=== PATIENT | female | born 1995 | race African-American/Black ===

== ENCOUNTER 2017-03-10 00:53 | Emergency (ER) | payer OTHER ==
--- NOTE | ~2017-03-10 | CT2 ---
[facility] Service of [facility] RADIOLOGY TEXT RESULTS PATIENT: DIXIE ABREU LOCATION: SED : 95 UNIT #: [id number] AGE: [address]: Berry Levin MD SEX: F ORDER DR: [id number] [address] [address] [id number] MR#: [id number] Acc #: [id number] NAME: DIXIE ABREU : 1995 SEX: F STUDY DATE/TIME: 03/10/2017 2:32 UNIT: SED ROOM: STUDY DESCRIPTION: CT Abd and Pelv W Cont Attending Physician: Berry Levin M.D. Ordering Physician: Berry Levin M.D. Primary Care Physician: Iglesia Spaulding M.D. MEDICAL IMAGING REPORT This report is preliminary unless electronic signature is present. EXAM CT abdomen and pelvis with contrast HISTORY Abdominal pain nausea vomiting onset today. TECHNIQUE This CT exam was performed with one or more of the following radiation dose reduction techniques: automatic control, adjustment of mA and/or kV according to patient size, and iterative reconstruction. FINDINGS Axial images form through the abdomen and pelvis following IV contrast. Multiplanar reconstructed images reviewed at a workstation. ABDOMEN: Lung bases unremarkable. Liver, spleen, gallbladder, pancreas, kidneys and adrenal glands appear normal. The visualized GI tract unremarkable. The appendix is felt to be visualized and the right lower quadrant appears normal. PELVIS: There is a 5.5 x 6.1 x 5.7 cm low-attenuation mass anterior to the uterus possibly ovarian in etiology and probably represents a ovarian cyst. Clinical and imaging followup may be warranted. There is a small amount of free fluid in the posterior cul-de-sac. The uterus and bladder appears normal. Osseous structures and soft tissues appear normal. IMPRESSION A 5.5 x 6.1 x 5.7 cm low attenuation well marginated mass in the left anterior pelvis anterior to the uterus. I suspect this is ovarian in origin and probably represents a ovarian cyst. Given the patient's clinical symptoms, imaging and clinical follow up to resolution may be warranted. There is also a small amount of free fluid in the posterior pelvis. STS. [facility] A Service of [facility] & [facility] RADIOLOGY TEXT RESULTS PATIENT: DIXIE ABREU LOCATION: SED : 95 UNIT #: [id number] AGE: [address]: Berry Levin MD SEX: F ORDER DR: Dictated by... Leticia Nazario M.D. THIS IS AN ELECTRONICALLY VERIFIED REPORT Leticia Nazario M.D. at 03/11/2017 9:59 PM CHERYLE/terese TD: 03/10/2017 04:50 JOB #: [id number] MEDICAL IMAGING REPORT Page 1 of 1
[2017-03-10 00:46] LABS: BASOPHIL% 0.3 % (0-2.5); EOSINOPHIL% 0.1 % (0.0-7.0); HEMATOCRIT 36.3 % (35.0-45.0); HEMOGLOBIN 12.3 gm/dL (12.0-16.0); LYMPHOCYTE# 0.4 X10e3 (1.0-3.5); LYMPHOCYTE% 2.9 % (17.0-45.0); MEAN CELL VOLUME 77.7 FL (83-96); MEAN CORPUSCULAR HEMOGLOBIN 26.4 PG (28-34); MEAN PLATELET VOLUME 8.4 FL (6.5-11.5); MONOCYTE# 0.6 X10e3 (0-1.0); MONOCYTE% 4.6 % (3.0-12.0); NEUTROPHIL# 12.4 X10e3 (1.5-7.1); NEUTROPHIL% 92.1 % (40-75); PLATELET COUNT 191 X10e3 (140-420); RED BLOOD COUNT 4.67 X10e (3.90-5.30); RED CELL DISTRIBUTION WIDTH 14.2 % (11.0-15.5); WHITE BLOOD COUNT 13.4 X10e3 (4.0-10.5)
[2017-03-10 00:47] LABS: DIFF IND NO
[2017-03-10 00:48] LABS: URINE SOURCE CLEAN CATCH
[2017-03-10 00:51] LABS: URINE APPEARANCE CLEAR; URINE BILIRUBIN NEG (NEG); URINE BLOOD NEG (NEG); URINE COLOR YELLOW; URINE GLUCOSE NEG (NORM); URINE KETONE 1+ (NEG); URINE LEUKOCYTE ESTERASE NEG (NEG); URINE NITRATE NEG (NEG); URINE PROTEIN NEG (NEG); URINE UROBILINOGEN 0.2 MG/DL (NORM)
[2017-03-10 00:52] LABS: MICRO INDICATED? NO
[~2017-03-10 00:53] MED LIST: BACTRIM DS TABL1 TA1 PO; FLAGYL PO; MAGIC MOUTHWASH; NO MEDICATIONS; PYRIDIUM100 MG PO; TYLENOL/CO12 MG/5 ML PO
[2017-03-10 01:04] LABS: ALBUMIN SERUM 4.1 g/dL (3.5-5.0); BILIRUBIN, DIRECT 0.3 mg/dL (0.0-0.2); BILIRUBIN,INDIRECT 1.3 mg/dL (0.0-0.9); BILIRUBIN,TOTAL 1.6 mg/dL (0.2-2.0); BUN/CREATININE RATIO 22.85; CALCIUM SERUM 9.1 mg/dL (8.4-10.2); CREATININE SERUM 0.7 mg/dL (0.6-1.4); GLOM FILT RATE Estimated 142.5 mL/min (>60); POTASSIUM 3.4 mmol/L (3.5-5.1)
== END 2017-03-10 03:57 | disposition home or self-care (01) ==
LOC: SED 00:53
PROVIDERS: Emergency Medicine
DX: R11.2 Nausea with vomiting, unspecified (principal)
CPT/HCPCS: 36415; 74177; 80048; 80076; 81003; 83690; 84703; 85025; 96361; 96374; 96376; 99284; J2405; Q9967

== ENCOUNTER 2017-07-05 19:32 | Emergency (ER) | payer OTHER ==
[~2017-07-05] VITALS: Ht 170.2 cm; Wt 49.9 kg
--- NOTE | ~2017-07-05 | EKG ---
PATIENT: DIXIE ABREU UNIT #: [id number] Ventricular Rate: 91 BPM Atrial Rate: 91 BPM P-R Interval: 168 ms QRS Duration: 82 ms Q-T Interval: 362 ms QTC Calculation(Bezet): 445 ms P [place]: 63 degrees Calculated R [place]: 66 degrees Calculated T [place]: 60 degrees Diagnosis Line: Normal sinus rhythm Diagnosis Line: Normal ECG Diagnosis Line: When compared with ECG of 07-OCT-2013 20:17, Diagnosis Line: No significant change was found Diagnosis Line: Confirmed by CECILIA BECERRIL MD ([id number]) on 07/08/2017 Diagnosis Line: 1:53:03 PM INTERPRETING MD: JONE FARRIS
[2017-07-05 20:52] LABS: BASOPHIL% 0.1 % (0-2.5); EOSINOPHIL% 0.2 % (0.0-7.0); HEMATOCRIT 34.7 % (35.0-45.0); HEMOGLOBIN 12.2 gm/dL (12.0-16.0); LYMPHOCYTE# 1.2 X10e3 (1.0-3.5); MEAN CORPUSCULAR HEMOGLOBIN 26.9 PG (28-34); MEAN PLATELET VOLUME 8.4 FL (6.5-11.5); MONOCYTE# 0.5 X10e3 (0-1.0); MONOCYTE% 3.9 % (3.0-12.0); NEUTROPHIL# 10.1 X10e3 (1.5-7.1); NEUTROPHIL% 85.8 % (40-75); PLATELET COUNT 238 X10e3 (140-420); RED BLOOD COUNT 4.51 X10e (3.90-5.30); WHITE BLOOD COUNT 11.8 X10e3 (4.0-10.5)
[2017-07-05 20:53] LABS: DIFF IND NO
[2017-07-05 21:19] LABS: URINE SOURCE CLEAN CATCH
[2017-07-05 21:27] LABS: ALBUMIN SERUM 4.2 g/dL (3.5-5.0); BILIRUBIN, DIRECT 0.2 mg/dL (0.0-0.2); BILIRUBIN,INDIRECT 1.2 mg/dL (0.0-0.9); BILIRUBIN,TOTAL 1.4 mg/dL (0.2-2.0); CALCIUM SERUM 9.2 mg/dL (8.4-10.2); CREATININE SERUM 0.5 mg/dL (0.6-1.4); GLOM FILT RATE Estimated 159.2 mL/min (>60); PROTEIN TOTAL SERUM 7.2 g/dL (6.0-8.3)
[2017-07-05 21:37] LABS: URINE APPEARANCE CLOUDY; URINE BILIRUBIN NEG (NEG); URINE BLOOD NEG (NEG); URINE COLOR DK YELLOW; URINE GLUCOSE NEG (NEG); URINE KETONE 2+ (NEG); URINE LEUKOCYTE ESTERASE 1+ (NEG); URINE NITRATE NEG (NEG); URINE PH 6.5 (5-8); URINE PROTEIN 2+ (NEG); URINE SPECIFIC GRAVITY 1.028 (1.003-1.035)
[2017-07-05 21:39] LABS: CULTURE INDICATED? YES; URBCS1 AUWI 0-2 /[HPF] (0-2); URINE BACTERIA AUWI 4+ (NEGATIVE); UWBCS1 AUWI 25-50 (0-5)
[2017-07-05 21:49] LABS: URINE SQUAMOUS EPITHELIAL CELL MANY /[HPF]
== END 2017-07-05 23:20 | disposition home or self-care (01) ==
LOC: CED 19:32
PROVIDERS: Emergency Medicine
DX: O21.0 Mild hyperemesis gravidarum (principal); O99.89 Other specified diseases and conditions complicating pregnancy, childbirth and the puerperium; O99.341 Other mental disorders complicating pregnancy, first trimester; F41.9 Anxiety disorder, unspecified; R51 Headache
CPT/HCPCS: 36415; 80048; 80076; 81003; 83690; 84702; 84703; 85025; 87086; 93005; 96361; 96365; 96375; 99284; J0696; J2550